=== PATIENT | male | born 1930 | race Caucasian/White ===

== ENCOUNTER 2017-07-28 07:12 | Inpatient (IN) | payer OTHER ==
[~2017-07-28] VITALS: Ht 175.3 cm; Wt 93.7 kg
[~2017-07-28 07:12] MED LIST: ATEN50TA41 PO; BISA-49 PO; CYAN10005 PO; DIGO125T81 PO; ERGO500017 PO; HYDR-3237 PO; LISI40TA PO; SOTA80TA18 PO; WARF5TAB PO; [UNRECOGNIZED DRUG - CODE] PO
[2017-07-28] MEDS ORDERED: DILTIAZEM 125 MG in DEXTROSE 5% 100 ML IV SCH (07:21)
[2017-07-28] MEDS ORDERED: SODIUM CHLORIDE FLUSH 10ML SYR IVF ONE (07:30)
[2017-07-28] MEDS ORDERED: DILTIAZEM 5 MG/ML, 5ML IV ONE (07:30)
[2017-07-28 07:54] LABS: MEAN CORPUSCULAR HEMOGLOBIN 33.2 pg (27.5-34.5); MEAN CORPUSCULAR HGB CONC 32.3 g/dL (33.2-36.2); MEAN CORPUSCULAR VOLUME 102.9 fL (81-97); MEAN PLATELET VOLUME 9.6 fL (7.4-10.4); PLATELET COUNT 136 x10^3/uL (130-400); RED BLOOD COUNT 4.59 x10^6/uL (4.38-5.82); RED CELL DISTRIBUTION WIDTH 18.2 % (9.4-14.8)
[2017-07-28] MEDS ORDERED: METOPROLOL 1 MG/ML, 5ML ONE ×2 (07:55→08:49)
[2017-07-28 07:56] LABS: ALANINE AMINOTRANSFERASE 33 U/L (12-78); ANION GAP 9 mmol/L (5-15); CALCIUM 8.3 mg/dL (8.5-10.1); CHLORIDE 101 mmol/L (98-107); CREATININE 1.73 mg/dL (0.7-1.3)
[2017-07-28 08:00] LABS: ALKALINE PHOSPHATASE 170 U/L (45-117); BILIRUBIN,TOTAL 1.7 mg/dL (0.2-1.0)
[2017-07-28] MEDS: METOPROLOL 1 MG/ML, 5ML IVPush PRN ×3 (08:09→09:17)
[2017-07-28] MEDS ORDERED: SOTA120T26 PO (08:15)
[2017-07-28] MEDS ORDERED: SILV20CR13 TP (08:15)
[2017-07-28] MEDS ORDERED: FURO80TA77 PO (08:15)
[2017-07-28] MEDS ORDERED: APIX5TAB PO (08:15)
[2017-07-28] MEDS ORDERED: LISI40TA PO (08:15)
[2017-07-28] MEDS ORDERED: MUPI15CR TP (08:15)
[2017-07-28] MEDS ORDERED: TAMS-11 PO (08:15)
[2017-07-28] MEDS ORDERED: POTA10CA PO (08:15)
[2017-07-28] MEDS ORDERED: DIVA125T2 PO (08:15)
[2017-07-28 08:22] LABS: INTERNATIONAL NORMALIZED RATIO 1.44 (0.93-1.1); PROTHROMBIN TIME 14.7 Seconds (9.6-11.5)
[2017-07-28 08:35] LABS: MD YES
[2017-07-28 08:37] LABS: ANISOCYTOSIS 1+; BAND#(MANUAL) 1.16 x10^3/uL; BANDS%(MANUAL) 6 % (0-7); LYMPH#(MANUAL) 0.19 x10^3/uL (1-3.4); LYMPHS% (MANUAL) 1 % (22-44); MONOS#(MANUAL) 0.58 x10^3/uL (0.3-2.7); MONOS% (MANUAL) 3 % (2-9); NRBC % (MANUAL) 1 % (0-1); POLYCHROMASIA 1+; SEG#(MANUAL) 17.46 x10^3/uL (1.8-6.8); SEGS% (MANUAL) 90 % (42-75)
[2017-07-28 08:38] LABS: <PLATELET ESTIMATE> ADEQUATE; <PLT MORPHOLOGY> NORMAL PLT MORPH; OVALOCYTES 1+
[2017-07-28] MEDS ORDERED: SODIUM CHLORIDE FLUSH 10ML SYR IVF PRN (09:00)
[2017-07-28 10:05] VITALS: BP 107/76
[2017-07-28 10:19] VITALS: BP 95/78
[2017-07-28] MEDS ORDERED: DIGOXIN 0.25 MG/ML, 2ML ONE (11:08)
[2017-07-28] MEDS ORDERED: PHARMACY INSTRUCTION MC SCH ×3 (11:30→12:00)
[2017-07-28] MEDS ORDERED: LACTATED RINGERS 500 ML IVBOLUS ONE (11:30)
[2017-07-28] MEDS ORDERED: PHARMACOKINETIC MONITORING MC PRN (11:30)
[2017-07-28] MEDS ORDERED: MEROPENEM 500 MG in SODIUM CHLORIDE 0.9% 100 ML IV SCH (11:30)
[2017-07-28] MEDS ORDERED: PHARMACOKINETIC CONSULTATION MC ONE (11:30)
[2017-07-28] MEDS ORDERED: DIGOXIN 0.25 MG/ML, 2ML IVPush ONE (11:30)
[2017-07-28] MEDS ORDERED: VANCOMYCIN PER PHARMACY MC PRN (11:30)
[2017-07-28] MEDS ORDERED: PIPERACILLIN/TAZO/PMX 3.375GM 50 ML IV ONE (11:30)
[2017-07-28] MEDS ORDERED: morphine SULFATE 10 MG/ML, 1ML IVPush PRN (12:00)
[2017-07-28] MEDS ORDERED: ONDANSETRON 2MG/ML, 2ML IVPush PRN (12:00)
[2017-07-28] MEDS ORDERED: hydrALAzine 20 MG/ML, 1ML IVPush PRN (12:00)
[2017-07-28] MEDS: VANCOMYCIN 2,000 MG in SODIUM CHLORIDE 0.9% 500 ML IV SCH (12:05)
[2017-07-28] MEDS: SODIUM CHLORIDE 0.9% 1,000 ML IV SCH (12:07)
[2017-07-28] MEDS: METOPROLOL 1 MG/ML, 5ML IVPush SCH ×2 (12:10→18:20)
[2017-07-28] MEDS: MEROPENEM 1 GM in SODIUM CHLORIDE 0.9% 100 ML IV SCH ×2 (12:18→23:36)
[2017-07-28] MEDS ORDERED: FUROSEMIDE 40 MG/4 ML ONE (12:22)
[2017-07-28] MEDS: FUROSEMIDE 40 MG/4 ML IV SCH (12:23)
[2017-07-28 13:53] VITALS: BP 96/93
[2017-07-28 14:14] VITALS: BP 99/65
[2017-07-28] MEDS ORDERED: ENOXAPARIN 60 MG/0.6 ML ONE (15:21)
[2017-07-28] MEDS: ENOXAPARIN 120MG/0.8ML SQ SCH (15:42)
[2017-07-28 18:00] VITALS: BP 115/71
[2017-07-28 18:04] LABS: CULTURE INDICATED? YES; MICROSCOPIC INDICATED
[2017-07-28 20:18] VITALS: BP 108/68
[2017-07-29] VITALS: BP 125/84
[2017-07-29] MEDS: SODIUM CHLORIDE 0.9% 1,000 ML IV SCH ×3 (05:37→23:18)
[2017-07-29] MEDS: METOPROLOL 1 MG/ML, 5ML IVPush SCH ×5 (05:38→23:19)
[2017-07-29 05:41] LABS: ALANINE AMINOTRANSFERASE 28 U/L (12-78); ALBUMIN 2.5 g/dL (3.4-5.0); ANION GAP 6 mmol/L (5-15); CALCIUM 7.9 mg/dL (8.5-10.1); CHLORIDE 106 mmol/L (98-107); CREATININE 1.59 mg/dL (0.7-1.3)
[2017-07-29 05:58] LABS: ALKALINE PHOSPHATASE 135 U/L (45-117)
[2017-07-29 06:28] LABS: BASOPHILS % (AUTO) 0 % (0-1); EOSINOPHILS # (AUTO) 0.01 x10^3/uL (0-0.4); EOSINOPHILS % (AUTO) 0 % (1-7); LYMPHOCYTES # (AUTO) 0.71 x10^3/uL (1-3.4); LYMPHOCYTES % (AUTO) 7 % (22-44); MD NO; MEAN CORPUSCULAR HEMOGLOBIN 32.7 pg (27.5-34.5); MEAN CORPUSCULAR HGB CONC 31.2 g/dL (33.2-36.2); MEAN CORPUSCULAR VOLUME 104.9 fL (81-97); MEAN PLATELET VOLUME 9.7 fL (7.4-10.4); MONOCYTES % (AUTO) 7 % (2-9); NEUTROPHILS # (AUTO) 8.73 x10^3/uL (1.8-6.8); NEUTROPHILS % (AUTO) 86 % (42-75); PLATELET COUNT 113 x10^3/uL (130-400); RED BLOOD COUNT 4.33 x10^6/uL (4.38-5.82); RED CELL DISTRIBUTION WIDTH 17.9 % (9.4-14.8)
[2017-07-29 07:51] VITALS: BP 103/73
[2017-07-29] MEDS: PANTOPRAZOLE 40 MG IV IVPush SCH (07:57)
[2017-07-29] MEDS: FUROSEMIDE 40 MG/4 ML IV SCH (07:58)
[2017-07-29] MEDS ORDERED: ENOXAPARIN 60 MG/0.6 ML ONE (13:27)
[2017-07-29] MEDS: ENOXAPARIN 120MG/0.8ML SQ SCH ×2 (13:33→17:00)
[2017-07-29] MEDS: MEROPENEM 1 GM in SODIUM CHLORIDE 0.9% 100 ML IV SCH ×2 (13:33→23:18)
[2017-07-29 14:13] VITALS: BP 121/91
[2017-07-29] MEDS ORDERED: [UNRECOGNIZED DRUG - REMARK] MC SCH (16:30)
[2017-07-29 18:58] VITALS: BP 100/65
[2017-07-30 00:13] VITALS: BP 105/73
[2017-07-30 05:01] LABS: MEAN CORPUSCULAR HEMOGLOBIN 33.4 pg (27.5-34.5); MEAN CORPUSCULAR HGB CONC 31.2 g/dL (33.2-36.2); MEAN CORPUSCULAR VOLUME 106.9 fL (81-97); MEAN PLATELET VOLUME 9.9 fL (7.4-10.4); PLATELET COUNT 126 x10^3/uL (130-400); RED CELL DISTRIBUTION WIDTH 17.9 % (9.4-14.8)
[2017-07-30 05:11] LABS: ALBUMIN 2.5 g/dL (3.4-5.0); ANION GAP 6 mmol/L (5-15); CHLORIDE 106 mmol/L (98-107)
[2017-07-30 05:15] LABS: ALANINE AMINOTRANSFERASE 28 U/L (12-78); ALKALINE PHOSPHATASE 142 U/L (45-117); CREATININE 1.72 mg/dL (0.7-1.3); TOTAL PROTEIN 5.9 g/dL (6.4-8.2)
[2017-07-30 05:39] LABS: MD YES
[2017-07-30 05:41] VITALS: BP 120/75
[2017-07-30 05:41] LABS: BAND#(MANUAL) 0.16 x10^3/uL; BANDS%(MANUAL) 2 % (0-7); LYMPH#(MANUAL) 1.25 x10^3/uL (1-3.4); LYMPHS% (MANUAL) 16 % (22-44); MONOS#(MANUAL) 0.39 x10^3/uL (0.3-2.7); MONOS% (MANUAL) 5 % (2-9); NRBC % (MANUAL) 1 % (0-1); SEG#(MANUAL) 6.01 x10^3/uL (1.8-6.8); SEGS% (MANUAL) 77 % (42-75)
[2017-07-30 05:43] LABS: <PLATELET ESTIMATE> ADEQUATE; <PLT MORPHOLOGY> NORMAL PLT MORPH; ANISOCYTOSIS 1+; OVALOCYTES 1+; POLYCHROMASIA 1+
[2017-07-30] MEDS: METOPROLOL 1 MG/ML, 5ML IVPush SCH ×3 (05:47→18:23)
[2017-07-30 07:17] VITALS: BP 90/60
[2017-07-30] MEDS: ENOXAPARIN 120MG/0.8ML SQ SCH (09:00)
[2017-07-30] MEDS: FUROSEMIDE 40 MG/4 ML IV SCH (10:02)
[2017-07-30] MEDS: PANTOPRAZOLE 40 MG IV IVPush SCH (10:02)
[2017-07-30 13:44] VITALS: BP 128/85
[2017-07-30] MEDS: MEROPENEM 1 GM in SODIUM CHLORIDE 0.9% 100 ML IV SCH (13:56)
[2017-07-30] MEDS: SODIUM CHLORIDE 0.9% 1,000 ML IV SCH ×2 (14:06→19:00)
[2017-07-30] MEDS: VANCOMYCIN 2,000 MG in SODIUM CHLORIDE 0.9% 500 ML IV SCH (15:16)
[2017-07-30] MEDS ORDERED: APIXABAN 2.5 MG TABLET PO ONE (18:00)
[2017-07-30] MEDS ORDERED: APIXABAN 5 MG TABLET PO SCH (18:00)
[2017-07-30] MEDS ORDERED: APIXABAN 5 MG TABLET PO ONE (18:00)
[2017-07-30 18:27] VITALS: BP 130/111
[2017-07-30 19:15] VITALS: BP 102/68
[2017-07-30] MEDS: DIVALPROEX 125 MG TABLET.DR PO SCH (20:18)
[2017-07-31 00:28] VITALS: BP 144/116
[2017-07-31] MEDS: METOPROLOL 1 MG/ML, 5ML IVPush SCH ×3 (00:33→11:58)
[2017-07-31] MEDS: SODIUM CHLORIDE 0.9% 1,000 ML IV SCH (02:11)
[2017-07-31] MEDS: MEROPENEM 1 GM in SODIUM CHLORIDE 0.9% 100 ML IV SCH ×2 (02:11→15:43)
[2017-07-31 02:26] VITALS: BP 109/88
[2017-07-31 05:14] LABS: MEAN CORPUSCULAR HEMOGLOBIN 33.4 pg (27.5-34.5); MEAN CORPUSCULAR HGB CONC 31.5 g/dL (33.2-36.2); MEAN CORPUSCULAR VOLUME 105.9 fL (81-97); MEAN PLATELET VOLUME 9.9 fL (7.4-10.4); PLATELET COUNT 126 x10^3/uL (130-400); RED BLOOD COUNT 4.76 x10^6/uL (4.38-5.82); RED CELL DISTRIBUTION WIDTH 18.3 % (9.4-14.8)
[2017-07-31 05:24] LABS: CHLORIDE 109 mmol/L (98-107)
[2017-07-31 05:31] LABS: ALANINE AMINOTRANSFERASE 36 U/L (12-78); ALBUMIN 2.7 g/dL (3.4-5.0); ALKALINE PHOSPHATASE 161 U/L (45-117); ANION GAP 6 mmol/L (5-15); BILIRUBIN,TOTAL 1.2 mg/dL (0.2-1.0); CALCIUM 8.3 mg/dL (8.5-10.1); CREATININE 1.92 mg/dL (0.7-1.3); TOTAL PROTEIN 6.3 g/dL (6.4-8.2)
[2017-07-31 05:58] VITALS: BP 109/88
[2017-07-31 06:48] LABS: MD YES
[2017-07-31 07:00] LABS: BAND#(MANUAL) 0.15 x10^3/uL; BANDS%(MANUAL) 2 % (0-7); EOS#(MANUAL) 0.15 x10^3/uL (0.0-0.4); EOS% (MANUAL) 2 % (1-7); LYMPH#(MANUAL) 1.22 x10^3/uL (1-3.4); LYMPHS% (MANUAL) 16 % (22-44); MONOS#(MANUAL) 0.61 x10^3/uL (0.3-2.7); MONOS% (MANUAL) 8 % (2-9); SEG#(MANUAL) 5.47 x10^3/uL (1.8-6.8); SEGS% (MANUAL) 72 % (42-75)
[2017-07-31 07:01] LABS: <PLATELET ESTIMATE> DECREASED; <PLT MORPHOLOGY> NORMAL PLT MORPH; POLYCHROMASIA 1+
[2017-07-31 07:29] VITALS: BP 102/71
[2017-07-31] MEDS ORDERED: D5%-0.45% NACL 1,000 ML IV SCH (08:30)
[2017-07-31] MEDS ORDERED: TAMSULOSIN 0.4 MG CAP.ER.24H PO SCH (09:00)
[2017-07-31] MEDS ORDERED: SOTALOL 120MG TABLET PO SCH (09:00)
[2017-07-31] MEDS: DIVALPROEX 125 MG TABLET.DR PO SCH (09:00)
[2017-07-31] MEDS ORDERED: ALBUMIN HUMAN 25% 100 ML IV SCH (09:00)
[2017-07-31] MEDS ORDERED: APIXABAN 2.5 MG TABLET PO SCH (09:00)
[2017-07-31] MEDS: PANTOPRAZOLE 40 MG IV IVPush SCH (09:01)
[2017-07-31 09:04] VITALS: BP 107/81
[2017-07-31 12:05] VITALS: BP 97/69
[2017-07-31] MEDS ORDERED: LORazepam 2 MG/ML, 1ML IVPush PRN (17:00)
[2017-08-01] MEDS ORDERED: VANCOMYCIN 2,000 MG in SODIUM CHLORIDE 0.9% 500 ML IV SCH (15:00)
== END 2017-08-01 02:55 | disposition expired | DRG 871 ==
LOC: ED 08:42 → EDIP 08:43 → ED 09:00 → 5SO 09:46 → 3NW 07-31 18:23
PROVIDERS: ADMIT Hospitalist; ATTEND Internal Medicine
DX: A41.9 Sepsis, unspecified organism (principal); J18.9 Pneumonia, unspecified organism; J96.21 Acute and chronic respiratory failure with hypoxia; N17.0 Acute kidney failure with tubular necrosis; E43 Unspecified severe protein-calorie malnutrition; G93.40 Encephalopathy, unspecified; J15.9 Unspecified bacterial pneumonia; D68.69 Other thrombophilia; I50.43 Acute on chronic combined systolic (congestive) and diastolic (congestive) heart failure; E66.01 Morbid (severe) obesity due to excess calories; E87.0 Hyperosmolality and hypernatremia; E87.2 Acidosis; J98.11 Atelectasis; L03.115 Cellulitis of right lower limb; L03.116 Cellulitis of left lower limb; D75.89 Other specified diseases of blood and blood-forming organs; F03.90 Unspecified dementia, unspecified severity, without behavioral disturbance, psychotic disturbance, mood disturbance, and anxiety; I11.0 Hypertensive heart disease with heart failure; I34.0 Nonrheumatic mitral (valve) insufficiency; I48.2 Chronic atrial fibrillation; Z66 Do not resuscitate; Z78.1 Physical restraint status; Z79.01 Long term (current) use of anticoagulants; Z79.899 Other long term (current) drug therapy; Z86.718 Personal history of other venous thrombosis and embolism; Z87.442 Personal history of urinary calculi; Z87.891 Personal history of nicotine dependence; Z90.6 Acquired absence of other parts of urinary tract; Z99.81 Dependence on supplemental oxygen; Z68.30 Body mass index [BMI] 30.0-30.9, adult; Z51.5 Encounter for palliative care
CPT/HCPCS: 36415; 70450; 71045; 80053; 80162; 81001; 82550; 83605; 83735; 83880; 84100; 84443; 85025; 85610; 85730; 87040; 87070; 87077; 87086; 87186; 87205; 93005; 93306; 93970; J1650; J1940; J2185; J2270; J3370; J7120; P9047; C9113; J1160; J2060; J7030; J7040